=== PATIENT | female | born 2000 | race Caucasian/White ===

== ENCOUNTER 2022-09-16 20:00 | Emergency (ER) | payer BC ==
[~2022-09-16] VITALS: Ht 157.5 cm; Wt 86.0 kg
[2022-09-16 22:28] VITALS: BP 126/65
== END 2022-09-16 22:30 | disposition home or self-care (01) ==
LOC: ED 20:00
DX: O20.0 Threatened abortion (principal); Z3A.10 10 weeks gestation of pregnancy; Z88.0 Allergy status to penicillin
CPT/HCPCS: 36415; 76801; 76817; 80053; 81001; 84702; 85025; 86900; 86901; 99284 25

== ENCOUNTER 2023-09-06 13:40 | Inpatient (IN) | payer OTHER ==
[~2023-09-06] VITALS: Ht 157.5 cm; Wt 114.8 kg
[2023-09-06 13:59] LABS: HEMATOCRIT 34.9 % (35.0-50.0); HEMOGLOBIN 11.7 g/dL (12.0-18.0); MCH 29.2 (27-36); MCHC 33.6 g/dl (30-36); MCV 86.8 fl (81-99); RBC 4.02 M/ul (4.3-5.7); RDW 14.5 (10.5-15.0)
[2023-09-06 14:10] LABS: CREATININE, RANDOM URINE 227.14 mg/dL (NOT ESTABLISHED); PROTEIN/CREATININE RATIO 0.48 mg/mg (0.010-0.107)
[2023-09-06 14:13] LABS: ALBUMIN 2.6 g/dL (3.4-5.0); ALBUMIN/GLOBULIN RATIO 0.68 (1.1-2.4); BILIRUBIN, TOTAL 0.1 ng/dL (0.2-1.0); BUN/CREATININE RATIO 12.65 (6.0-28.6); CALCIUM 8.6 mg/dL (8.5-10.1); CREATININE, SERUM 0.79 mg/dL (0.55-1.02); PROTEIN, TOTAL 6.4 g/dL (6.4-8.2)
[2023-09-06] MEDS ORDERED: OXYTOCIN/DEXTROSE 5% 20 UNITS/100 ML BAG IV SCH (14:45)
[2023-09-06] MEDS ORDERED: MAGNESIUM HYDROXIDE/AL HYDROX 30 ML CUP PO PRN (14:45)
[2023-09-06] MEDS ORDERED: LACTATED RINGER'S 1,000 ML IV SCH (14:45)
[2023-09-06] MEDS ORDERED: CALCIUM CARBONATE 500 MG CHEW PO PRN (14:45)
[2023-09-06 15:00] LABS: AMPHETAMINES, URINE NEGATIVE (NEGATIVE); BARBITURATES, URINE NEGATIVE (NEGATIVE); BENZODIAZEPINE, URINE NEGATIVE (NEGATIVE); BUPRENORPHINE, URINE NEGATIVE (NEGATIVE); CANNABINOID, URINE NEGATIVE (NEGATIVE); COCAINE, URINE NEGATIVE (NEGATIVE); ECSTASY, URINE NEGATIVE (NEGATIVE); FENTANYL, URINE NEGATIVE (NEGATIVE); METHADONE, URINE NEGATIVE (NEGATIVE); OPIATES, URINE NEGATIVE (NEGATIVE); OXYCODONE, URINE NEGATIVE (NEGATIVE); PHENCYCLIDINE, URINE NEGATIVE (NEGATIVE)
[2023-09-06 15:28] VITALS: BP 149/83
[2023-09-06 15:59] LABS: ABO O; ANTIBODY SCREEN NEGATIVE; RH POSITIVE
[2023-09-06] MEDS ORDERED: miSOPROStoL 25 MCG TAB PV SCH (16:15)
[2023-09-06] MEDS ORDERED: ondansetron HCL 4 MG/2 ML VIAL IV PRN (19:00)
[2023-09-06] MEDS ORDERED: diphenhydrAMINE HCL 25 MG CAP PO SCH (21:00)
--- NOTE | 2023-09-07 06:39 | PR ---
[facility] [address] [facility] [place], [place] [address] Signed Progress Notes IP Datetime Report Generated by CPN: 09/07/2023 06:39 PROGRESS NOTES: [id number] Impression: Reassuring Heart Rate Plan: Continue Present Management VITAL SIGNS: [id number] EXAM: [id number] Effacement: 80 Station: -2 MEMBRANES: [id number] Comments: Reviewed overnight progress w/ RN. Doing well. No concerns. Cervix thin but not dilated at last check. Will continue to monitor progress at next check. FETUS A: [id number] FHR Baseline: 130 Variability: Moderate 6-25bpm Accelerations: 15X15 Decelerations: None FHR Category: Category I Presentation: Vertex Comments on Fetus A: No evidence of metabolic acidosis FETUS B: [id number] Signing Physician: Sharon John DO Copies: ~ *Electronically Signed* 09/07/23 0639 SHARON JOHN (KARENA) DO PATIENT NAME: MEGA JALLOH PROGRESS NOTE DATE OF : 99 PHYSICIAN: SHARON JOHN (KARENA) DO RPT #: [id number] REPORT IS CONFIDENTIAL AND NOT TO BE RELEASED WITHOUT AUTHORIZATION
[2023-09-07] MEDS ORDERED: diphenhydrAMINE HCL 25 MG CAP PO PRN (17:30)
--- NOTE | 2023-09-07 19:36 | PR ---
[facility] [address] [place], [place] [address] Signed Progress Notes IP Datetime Report Generated by CPN: 09/07/2023 19:36 PROGRESS NOTES: [id number] Impression: Reassuring Heart Rate Other Impressions: Unfavorable cervix Procedures: Sterile Vag Exam Plan: Continue Present Management; Cervical Ripening VITAL SIGNS: [id number] EXAM: [id number] Dilatation: 0.5 Effacement: 60 Station: -3 Contractions: Irritability; mild MEMBRANES: [id number] Comments: Pt seen and examined. Doing well and in good spirits. No ISAAC, RUQ pain, or visual changes. Reviewed vitals. Cx unchanged. Unable to attempt Cook Cath placement and will continue w/ cervical ripening w/ cytotec. Pt understands and agrees. FETUS A: [id number] FHR Baseline: 130 Variability: Moderate 6-25bpm Accelerations: 15X15 Decelerations: None FHR Category: Category I Presentation: Vertex Comments on Fetus A: No evidence of metabolic acidosis FETUS B: [id number] Signing Physician: Sharon John DO Copies: ~ *Electronically Signed* 09/07/231935 SHARON JOHN (KARENA) DO PATIENT NAME: MEGA JALLOH PROGRESS NOTE DATE OF : 99 PHYSICIAN: SHARON JOHN (JD) DO RPT #: [id number] REPORT IS CONFIDENTIAL AND NOT TO BE RELEASED WITHOUT AUTHORIZATION
[2023-09-07] MEDS ORDERED: miSOPROStoL 25 MCG TAB PV SCH (20:00)
[2023-09-08] MEDS ORDERED: LABETALOL HCL 100 MG/20 ML MDV ONE (05:15)
[2023-09-08] MEDS ORDERED: LABETALOL HCL 100 MG/20 ML MDV IV PRN (05:30)
[2023-09-08] MEDS ORDERED: MAGNESIUM SULFATE 500 ML IV SCH (05:45)
[2023-09-08] MEDS ORDERED: LACTATED RINGER'S 1,000 ML IV SCH (05:45)
[2023-09-08] MEDS ORDERED: CALCIUM GLUCONATE 1,000 MG/10 ML VIAL IV PRN (05:45)
[2023-09-08 05:55] LABS: HEMOGLOBIN 11.9 g/dL (12.0-18.0); MCH 29.4 (27-36); MCV 86.6 fl (81-99); RBC 4.04 M/ul (4.3-5.7); RDW 14.5 (10.5-15.0)
[2023-09-08 06:15] LABS: ALBUMIN 2.4 g/dL (3.4-5.0); ALBUMIN/GLOBULIN RATIO 0.63 (1.1-2.4); ANION GAP 13.8 (7-21); BILIRUBIN, TOTAL 0.2 ng/dL (0.2-1.0); BUN/CREATININE RATIO 10.66 (6.0-28.6); CALCIUM 7.9 mg/dL (8.5-10.1); CREATININE, SERUM 0.75 mg/dL (0.55-1.02); POTASSIUM 3.8 mmol/L (3.5-5.1); PROTEIN, TOTAL 6.2 g/dL (6.4-8.2)
--- NOTE | 2023-09-08 06:33 | PR ---
[facility] [address] [place], [place] [address] Signed Progress Notes IP Datetime Report Generated by CPN: 09/08/2023 06:33 PROGRESS NOTES: [id number] Impression: Reassuring Heart Rate Other Impressions: PreE w/ severe features Procedures: Sterile Vag Exam Plan: Continue Present Management Informed Consent Obtain: Section Delivery; Induction of Labor; Risks, Benefits and Alternatives Discussed VITAL SIGNS: [id number] EXAM: [id number] Dilatation: 1.5 Effacement: 75 Station: -3 Contractions: q 1-2 min per pt MEMBRANES: [id number] Comments: Pt seen and examined. Called w/ sustained severely elevated BPs and Mag Sulfate and IV labetalol per protocol initiated. PreE labs drawn and normal. Cx still unfavorable but should be able to place Cook cath at this point. Discussed remote for delivery, reassuring status, PreE w/ severe features, mild tocolytic effect of magnesium, and extended induction. Offered continued induction of labor / trial of vaginal delivery vs primary LTCS. Pt desires continued induction of labor and will consider epidural at this point as she is more uncomfortable. All questions answered. Will continue to monitor closely FETUS A: [id number] FHR Baseline: 130 Variability: Moderate 6-25bpm Accelerations: 15X15 Decelerations: None FHR Category: Category I Presentation: Vertex Comments on Fetus A: No evidence of metabolic acidosis FETUS B: [id number] Signing Physician: Sharon John DO *Electronically Signed* 09/08/23 0633 SHARON JOHN) DO PATIENT NAME: MEGA JALLOH LORI PROGRESS NOTE DATE OF : 99 PHYSICIAN: SHARON JOHN (JD) DO RPT #: [id number] REPORT IS CONFIDENTIAL AND NOT TO BE RELEASED WITHOUT AUTHORIZATION
[2023-09-08] MEDS ORDERED: ROPIVACAINE 0.2% 200 ML BAG ONE (08:47)
--- NOTE | 2023-09-08 09:56 | PR ---
[facility] [address] [place], [place] [address] Signed Progress Notes IP Datetime Report Generated by CPN: 09/08/2023 09:56 PROGRESS NOTES: [id number] Impression: Normal Progression of Labor Other Impressions: PreE w/ severe features Procedures: Sterile Vag Exam Other Procedures: Cook Cath insertion Plan: Continue Present Management Informed Consent Obtain: Section Delivery; Induction of Labor; Risks, Benefits and Alternatives Discussed VITAL SIGNS: [id number] EXAM: [id number] Dilatation: 1.5 Effacement: 75 Station: -3 Contractions: Irregular MEMBRANES: [id number] Comments: Pt seen and examined. Doing well. Comfortable w/ epidural but some hypotension w/ resulting late decel (intermittent). Will monitor closely and consider ephedrine per anesthesia. Discussed options for moving foward w/ induction and recommended Cook Cath. Verbal consent obtained. Cook cath placed w/out difficulty. Mother and fetus tolerated well. FETUS A: [id number] FHR Baseline: 130 Variability: Moderate 6-25bpm Accelerations: 15X15 Decelerations: Late FHR Category: Category II Presentation: Vertex Comments on Fetus A: No evidence of metabolic acidosis FETUS B: [id number] Signing Physician: Sharon John DO Copies: ~ *Electronically Signed* 09/08/23 0956 SHARON JOHN (KARENA) DO PATIENT NAME: MEGA JALLOH PROGRESS NOTE DATE OF : 99 PHYSICIAN: SHARON JOHN (JD) DO RPT #: [id number] REPORT IS CONFIDENTIAL AND NOT TO BE RELEASED WITHOUT AUTHORIZATION
[2023-09-08] MEDS ORDERED: ROPIVACAINE 0.2% 200 ML BAG EPIDURAL SCH (10:15)
[2023-09-08] MEDS ORDERED: ePHEDrine sulfate 5 MG/ML SYRINGE IV PRN (10:15)
[2023-09-08] MEDS ORDERED: LACTATED RINGER'S 2,000 ML IV ONE (10:15)
[2023-09-08] MEDS ORDERED: LACTATED RINGER'S 500 ML IV PRN (10:15)
[2023-09-08] MEDS ORDERED: ePHEDrine KIT FOR FBC IV ONE (10:19)
[2023-09-08] MEDS ORDERED: ACETAMINOPHEN 500 MG TAB PO PRN (14:15)
[2023-09-08 20:49] LABS: ALBUMIN 2.2 g/dL (3.4-5.0); ALBUMIN/GLOBULIN RATIO 0.65 (1.1-2.4); ANION GAP 12.9 (7-21); BILIRUBIN, TOTAL 0.2 ng/dL (0.2-1.0); BUN/CREATININE RATIO 11.11 (6.0-28.6); CALCIUM 7.4 mg/dL (8.5-10.1); CREATININE, SERUM 0.99 mg/dL (0.55-1.02); POTASSIUM 3.9 mmol/L (3.5-5.1); PROTEIN, TOTAL 5.6 g/dL (6.4-8.2)
--- NOTE | 2023-09-08 22:10 | PR ---
[facility] [address] [place], [place] [address] Signed Progress Notes IP Datetime Report Generated by CPN: 09/08/2023 22:10 PROGRESS NOTES: [id number] Impression: Reassuring Heart Rate Other Impressions: PreE w/ severe features Procedures: Artificial ROM; Intrauterine Pressure Catheter; Sterile Vag Exam Other Procedures: Cook Cath insertion Plan: Augmentation Informed Consent Obtain: Vaginal Delivery; Section Delivery VITAL SIGNS: [id number] EXAM: [id number] Dilatation: 3.5 Effacement: 75 Station: -3 Contractions: rare MEMBRANES: [id number] Comments: Pt seen and examined. Cook remains in place w/ residual cervix. Cook deflated and removed. AROM easily performed and IUPC placed. Large amount of clear fluid noted. Will start low dose pitocin. Discussed anticipated course of labor / induction. All questions answered. FETUS A: [id number] FHR Baseline: 130 Variability: Moderate 6-25bpm Accelerations: 15X15 Decelerations: None FHR Category: Category I Presentation: Vertex Comments on Fetus A: No evidence of metabolic acidosis FETUS B: [id number] Signing Physician: Sharon John DO Copies: ~ *Electronically Signed* 09/08/23 2353 SHARON JOHN (KARENA) DO PATIENT NAME: MEGA JALLOH PROGRESS NOTE DATE OF : 99 PHYSICIAN: SHARON JOHN (JD) DO RPT #: [id number] REPORT IS CONFIDENTIAL AND NOT TO BE RELEASED WITHOUT AUTHORIZATION
[2023-09-08] MEDS ORDERED: OXYTOCIN/0.9 % SODIUM CHLORIDE 500 ML IV SCH (22:15)
--- NOTE | 2023-09-09 06:51 | PR ---
[facility] [address] [facility] [place], [place] [address] Signed Progress Notes IP Datetime Report Generated by CPN: 09/09/2023 06:51 PROGRESS NOTES: [id number] Impression: Normal Progression of Labor; Reassuring Heart Rate Other Impressions: PreE w/ severe features Procedures: Sterile Vag Exam Other Procedures: Cook Cath insertion Plan: Continue Present Management; Anticipate Vaginal Delivery Informed Consent Obtain: Vaginal Delivery VITAL SIGNS: [id number] EXAM: [id number] Dilatation: 10.0 Effacement: 95 Station: 0 Contractions: q 2-5 min MEMBRANES: [id number] Comments: Pt seen and examined. Doing well. Now 10cm + 2 station and feel pelvic pressure. Reviewed anticipate course of 2nd stage of labor. Anticipate soon FETUS A: [id number] FHR Baseline: 130 Variability: Moderate 6-25bpm Accelerations: 15X15 Decelerations: None FHR Category: Category I Presentation: Vertex Comments on Fetus A: No evidence of metabolic acidosis FETUS B: [id number] Signing Physician: Sharon John DO Copies: ~ *Electronically Signed* 09/09/23 0651 SHARON JOHN (KARENA) DO PATIENT NAME: MEGA JALLOH PROGRESS NOTE DATE OF : 99 PHYSICIAN: SHARON JOHN (JD) DO RPT #: [id number] REPORT IS CONFIDENTIAL AND NOT TO BE RELEASED WITHOUT AUTHORIZATION
[2023-09-09] MEDS ORDERED: TRANEXAMIC ACID IN NACL,ISO-OS 100 ML IV ONE (07:06)
[2023-09-09] MEDS ORDERED: OXYTOCIN/0.9 % SODIUM CHLORIDE 500 ML IV SCH (08:15)
[2023-09-09] MEDS ORDERED: ACETAMINOPHEN 325 MG TAB PO PRN (08:15)
[2023-09-09] MEDS ORDERED: IBUPROFEN 600 MG TAB PO PRN (08:15)
[2023-09-09] MEDS ORDERED: MAGNESIUM HYDROXIDE/AL HYDROX 30 ML CUP PO PRN (08:15)
[2023-09-09] MEDS ORDERED: MAGNESIUM HYDROXIDE 30 ML UDC PO PRN (08:15)
[2023-09-09] MEDS ORDERED: CALCIUM CARBONATE 500 MG CHEW PO PRN (08:15)
[2023-09-09] MEDS ORDERED: OXYCODONE/APAP 5/325 TAB PO PRN (08:15)
[2023-09-09] MEDS ORDERED: BENZOCAINE 60 ML AEROSOL TOP PRN (08:15)
[2023-09-09] MEDS ORDERED: OXYCODONE HCL 5 MG TAB PO PRN (08:15)
[2023-09-09] MEDS ORDERED: CALCIUM GLUCONATE 1,000 MG/10 ML VIAL IV PRN (08:15)
[2023-09-09] MEDS ORDERED: WITCH HAZEL/GLYCERIN 1 EA PAD TOP PRN (08:15)
[2023-09-09] MEDS ORDERED: HYDROCODONE/ACETA 5/325 TAB PO PRN (08:15)
[2023-09-09] MEDS ORDERED: MAGNESIUM SULFATE 500 ML IV SCH (08:15)
[2023-09-09] MEDS ORDERED: LACTATED RINGER'S 1,000 ML IV SCH (08:15)
[2023-09-09] MEDS ORDERED: HYDROCORTISONE ACETATE 25 MG SUPP PR PRN (08:15)
[2023-09-09] MEDS ORDERED: ondansetron HCL 4 MG/2 ML VIAL ONE (08:59)
[2023-09-09] MEDS ORDERED: ondansetron HCL 4 MG/2 ML VIAL IV PRN (09:00)
[2023-09-09] MEDS ORDERED: SENNOSIDES/DOCUSATE 1 EA TAB PO SCH (09:00)
[2023-09-09] MEDS ORDERED: ENOXAPARIN SODIUM 40 MG/0.4 ML SYR SUB-Q SCH (12:00)
[2023-09-10 11:16] LABS: HEMATOCRIT 31.6 % (35.0-50.0); HEMOGLOBIN 10.3 g/dL (12.0-18.0); MCHC 32.7 g/dl (30-36); MCV 88.5 fl (81-99); RBC 3.57 M/ul (4.3-5.7); RDW 15.2 (10.5-15.0)
== END 2023-09-10 10:25 | disposition home or self-care (01) | DRG 807 ==
LOC: FBCO 13:40 → FBC 14:35
PROVIDERS: ADMIT Obstetrics & Gynecology; ATTEND Obstetrics & Gynecology
PROC: 3E0P7VZ Introduction of Hormone into Female Reproductive, Via Natural or Artificial Opening (ICD-10-PCS; 2023-09-06)
PROC: 10907ZC Drainage of Amniotic Fluid, Therapeutic from Products of Conception, Via Natural or Artificial Opening (ICD-10-PCS; 2023-09-08)
PROC: 10H07YZ Insertion of Other Device into Products of Conception, Via Natural or Artificial Opening (ICD-10-PCS; 2023-09-08)
PROC: 10E0XZZ Delivery of Products of Conception, External Approach (ICD-10-PCS; principal; 2023-09-09)
PROC: 0KQM0ZZ Repair Perineum Muscle, Open Approach (ICD-10-PCS; 2023-09-09)
DX: O14.14 Severe pre-eclampsia complicating childbirth (principal); Z37.0 Single live birth; Z3A.37 37 weeks gestation of pregnancy; O99.42 Diseases of the circulatory system complicating childbirth; I95.9 Hypotension, unspecified; O76 Abnormality in fetal heart rate and rhythm complicating labor and delivery; O70.1 Second degree perineal laceration during delivery
CPT/HCPCS: 01960; 36415; 80053; 80307; 82565; 82570; 83615; 83735; 84156; 84550; 85025; 85027; 86850; 86900; 86901; A9270; J1650; J2405; J2795; J3475; J7121

== ENCOUNTER 2023-10-01 12:11 | Emergency (ER) | payer OTHER ==
[~2023-10-01] VITALS: Ht 157.5 cm; Wt 95.0 kg
[2023-10-01] MEDS ORDERED: NIFEDIPINE ER30 MG PO (12:30)
[2023-10-01] MEDS ORDERED: diphenhydrAMINE HCL 50 MG/ML VIAL IV ONE (12:45)
[2023-10-01] MEDS ORDERED: METOCLOPRAMIDE HCL 10 MG/2 ML SDV IV ONE (12:45)
[2023-10-01 12:56] LABS: BASOPHILS 0.5 % (0-2); EOSINOPHILS 3.1 % (0-6); HEMATOCRIT 37.9 % (35.0-50.0); HEMOGLOBIN 12.7 g/dL (12.0-18.0); MCH 28.5 (27-36); MCHC 33.5 g/dl (30-36); MCV 85.1 fl (81-99); MONOCYTES 5.4 % (0-12); PLATELET COUNT 372 K/uL (140-440); RBC 4.45 M/ul (4.3-5.7); RDW 14.1 (10.5-15.0)
[2023-10-01 13:05] LABS: BILIRUBIN, URINE NEGATIVE (negative); BLOOD/HGB, URINE NEGATIVE (Negative); KETONE, URINE NEGATIVE (Negative); LEUK ESTERASE, URINE NEGATIVE (negative); NITRITE, URINE NEGATIVE (negative)
[2023-10-01 13:11] LABS: ALBUMIN 3.7 g/dL (3.4-5.0); ALBUMIN/GLOBULIN RATIO 1.03 (1.1-2.4); BILIRUBIN, TOTAL 0.3 ng/dL (0.2-1.0); CREATININE, SERUM 0.9 mg/dL (0.55-1.02); PROTEIN, TOTAL 7.3 g/dL (6.4-8.2)
[2023-10-01 13:14] LABS: BACTERIA, URINE NONE SEEN /hpf (negative); CASTS, URINE NONE SEEN \\lpf; COLLECTION TYPE, URINE CLEAN CATCH; CRYSTALS, URINE NONE SEEN (0-1+); EPITHELIAL CELLS, URINE SQUAMOUS 3+ /lpf (0-1+); RED BLOOD CELLS, URINE 0-1 /hpf (0-5); REFLEX CULTURE, URINE No (No)
[2023-10-01 13:41] VITALS: BP 115/62
== END 2023-10-01 13:43 | disposition home or self-care (01) ==
LOC: ED 12:11
PROVIDERS: Emergency Medicine
DX: O90.89 Other complications of the puerperium, not elsewhere classified (principal); H53.8 Other visual disturbances; G43.909 Migraine, unspecified, not intractable, without status migrainosus; R03.0 Elevated blood-pressure reading, without diagnosis of hypertension; Z88.0 Allergy status to penicillin; Z79.899 Other long term (current) drug therapy
CPT/HCPCS: 36415; 80053; 81001; 85025; 96374; 96375; 99284-25; J1200; J2765

== ENCOUNTER 2025-02-03 23:41 | Emergency (ER) | payer OTHER ==
[~2025-02-03] VITALS: Ht 157.5 cm; Wt 108.5 kg
[~2025-02-03 23:41] MED LIST: NIFEDIPINE ER30 MG PO
[2025-02-04 00:10] LABS: BASOPHILS 0.2 % (0.1-1.2); EOSINOPHILS 2.5 % (0.7-5.8); LYMPHOCYTES 29.8 % (19.3-51.7); MCH 27.9 PG (25.6-32.2); MCHC 33.2 g/dL (32.2-35.5); MCV 84.1 fL (79.4-94.8); MONOCYTES 4.8 % (4.7-12.5); NEUTROPHILS 61.9 % (34.0-71.1); RBC 4.77 M/uL (3.93-5.22)
[2025-02-04] MEDS ORDERED: LACTATED RINGER'S 1,000 ML IV ONE (00:15)
[2025-02-04] MEDS ORDERED: MORPHINE SULFATE 4 MG/ML VIAL IV ONE (00:15)
[2025-02-04] MEDS ORDERED: DIPHTH,PERTUSS(ACELL),TET VAC 0.5 ML SYRINGE IM ONE (00:15)
[2025-02-04 00:24] LABS: ALCOHOL, MEDICAL <3 mg/dL (<3); ALT (SGPT) 19 U/L (14-59); AST (SGOT) 15 U/L (15-37); GLOMERULAR FILTRATION RATE,EST 81 mL/min (>60); PROTEIN, TOTAL 7.5 g/dL (6.4-8.2); UREA NITROGEN 15 mg/dL (7-18)
[2025-02-04] MEDS ORDERED: HYDROCODON-ACE1 EA10 PO (02:16)
[2025-02-04] MEDS ORDERED: HYDROCODONE BIT/ACETAMINOPHEN 5/325 MG 1 TAB HOME.PACK PO ONE (02:30)
[2025-02-04 04:07] VITALS: BP 136/82
== END 2025-02-04 02:55 | disposition home or self-care (01) ==
LOC: ED 23:41
PROVIDERS: Family Medicine
DX: S22.040A Wedge compression fracture of fourth thoracic vertebra, initial encounter for closed fracture (principal); S22.050A Wedge compression fracture of T5-T6 vertebra, initial encounter for closed fracture; I10 Essential (primary) hypertension; V89.2XXA Person injured in unspecified motor-vehicle accident, traffic, initial encounter; Z88.0 Allergy status to penicillin
CPT/HCPCS: 36415; 70450; 70486; 72125; 72128; 72131; 80053; 84703; 85025; 90471; 99284-25; A9270; G0480; J7121